=== PATIENT | female | born 1940 | race Asian ===

== ENCOUNTER → 2017-03-13 | Outpatient (RCR) | payer OTHER | END | disposition home or self-care (01) | LOC: PTY 15:30 | DX: M54.41 Lumbago with sciatica, right side (principal); M25.511 Pain in right shoulder ==

== ENCOUNTER 2017-03-20 13:40 | Outpatient (RCR) | payer OTHER | END 2017-04-10 | disposition home or self-care (01) | LOC: PTY 13:40 | DX: M54.41 Lumbago with sciatica, right side (principal); M25.511 Pain in right shoulder ==